=== PATIENT | male | born 1955 | race Hispanic/Latino ===

== ENCOUNTER 2021-09-24 08:18 | Day surgery (SDC) | payer MEDICARE ==
[2021-09-22 13:46] VITALS: BP 145/68
[2021-09-22 14:01] LABS: BASOPHILS % (AUTO) 0.4 % (0.0-5.0); EOSINOPHILS % (AUTO) 2.4 % (0.0-8.0); HEMATOCRIT 40.7 % (42-54); LYMPHOCYTES % (AUTO) 26.7 % (21.0-51.0); MEAN CORPUSCULAR HEMOGLOBIN 32.1 pg (27.0-33.0); MEAN CORPUSCULAR HGB CONC 33.9 g/dL (32.0-36.0); MEAN CORPUSCULAR VOLUME 94.7 fL (79-99); MONOCYTES % (AUTO) 6.3 % (3.0-13.0); NEUTROPHILS % (AUTO) 63.7 % (40.0-77.0); PLATELET COUNT (AUTO) 260 K/uL (130-400); RED CELL DISTRIBUTION WIDTH 12.7 % (11.0-15.5); WHITE BLOOD COUNT (AUTO) 7.5 K/uL (4.8-10.8)
[2021-09-22 14:10] LABS: CREATININE 0.9 mg/dL (0.5-1.5); POTASSIUM 4.4 mmol/L (3.5-5.1)
[2021-09-24] VITALS (15 sets, daily range): BP systolic 129–149; BP diastolic 60–78
[~2021-09-24] VITALS: Ht 175.3 cm; Wt 68.8 kg
[~2021-09-24 08:18] MED LIST: 0.9% NACL 500ML IV.SOLN 500 ML IV SCH; CEFAZOLIN SODIUM 1 GM VIAL IVP SCH
[2021-09-24] MEDS ORDERED: CEFAZOLIN SODIUM 1 GM VIAL ONE (09:43)
[2021-09-24] MEDS ORDERED: LACTATED RINGERS 1000ML 1,000 ML IV ONE (09:43)
[2021-09-24] MEDS ORDERED: ACET-2743 PO (10:14)
[2021-09-24] MEDS ORDERED: BUPIVACAINE/PF 0.5% 30ML VIAL ONE (10:44)
[2021-09-24] MEDS ORDERED: SUCCINYLCHOLINE 200MG/10ML SYR ONE (11:15)
[2021-09-24] MEDS ORDERED: LIDOCAINE PF 100MG/5ML (2%) SYRINGE 5ML ONE (11:15)
[2021-09-24] MEDS ORDERED: ROCURONIUM 10MG/1ML SYR 10 MG/ML ML ONE (11:16)
[2021-09-24] MEDS ORDERED: MIDAZOLAM HCL 1 MG/ML 2ML VIAL ONE (11:16)
[2021-09-24] MEDS ORDERED: FENTANYL CITRATE PF 50 MCG/1 ML 2ML VIAL ONE (11:16)
[2021-09-24] MEDS ORDERED: PROPOFOL 10 MG/ML 20ML VIAL IV ONE (11:16)
[2021-09-24] MEDS ORDERED: EPHEDRINE SULFATE 50 MG/ML AMPULE ONE (12:04)
[2021-09-24] MEDS ORDERED: GLYCOPYRROLATE 1 MG/5 ML SYRINGE ONE (12:57)
[2021-09-24] MEDS ORDERED: NEOSTIGMINE 5MG/5ML SYR IV ONE (12:57)
[2021-09-24] MEDS ORDERED: MEPERIDINE-PF 25 MG/ML SYG ONE ×2 (13:23→13:36)
[2021-09-24] MEDS ORDERED: KETOROLAC 30MG VIAL (30MG/ML) ONE (13:47)
== END 2021-09-24 15:00 | disposition home or self-care (01) ==
LOC: DAH 08:18
PROVIDERS: ATTEND Surgery
DX: K40.90 Unilateral inguinal hernia, without obstruction or gangrene, not specified as recurrent (principal); Z20.822 Contact with and (suspected) exposure to COVID-19; D17.6 Benign lipomatous neoplasm of spermatic cord; E11.9 Type 2 diabetes mellitus without complications; Z98.890 Other specified postprocedural states; Z79.899 Other long term (current) drug therapy
CPT/HCPCS: 36415 ×2; 49650; 80048; 80053; 81001; 85025 ×2; 87088; 87635; 93005; 99284; A4215 ×2; A4221; A4222; A4223; A4344; A4649; A4663; A6260; C1781; C9803; G0168; J0330; J0690; J1885; J1956; J2001; J2175 ×2; J2250; J2704; J2710; J3010; J3490 ×3; J7120; 96365

== ENCOUNTER 2021-09-24 20:41 | Emergency (ER) | payer MEDICARE ==
[~2021-09-24] VITALS: Ht 175.3 cm; Wt 68.0 kg
[~2021-09-24 20:41] MED LIST changes: -0.9% NACL 500ML IV.SOLN 500 ML IV SCH; +ACET-2743 PO; -CEFAZOLIN SODIUM 1 GM VIAL IVP SCH
[2021-09-24 21:40] LABS: BASOPHILS % (AUTO) 0.2 % (0.0-5.0); EOSINOPHILS % (AUTO) 0.2 % (0.0-8.0); HEMATOCRIT 40.6 % (42-54); LYMPHOCYTES % (AUTO) 13.7 % (21.0-51.0); MEAN CORPUSCULAR HEMOGLOBIN 32.2 pg (27.0-33.0); MEAN CORPUSCULAR VOLUME 94.9 fL (79-99); MONOCYTES % (AUTO) 7.4 % (3.0-13.0); NEUTROPHILS % (AUTO) 78.2 % (40.0-77.0); PLATELET COUNT (AUTO) 241 K/uL (130-400); RED BLOOD CELL COUNT(AUTO) 4.28 MIL/uL (4.50-6.20); RED CELL DISTRIBUTION WIDTH 12.5 % (11.0-15.5); WHITE BLOOD COUNT (AUTO) 10.4 K/uL (4.8-10.8)
[2021-09-24] MEDS: PHENAZOPYRIDINE HCL 200 MG TABLET PO ONE (21:48)
[2021-09-24] MEDS: LEVOFLOXACIN 500 MG/D5W 100 ML 100 ML IV SCH (22:09)
[2021-09-24] MEDS: LIDOCAINE HCL 2% VISCOUS 15 ML UDCUP ONE (22:10)
[2021-09-24] MEDS: LIDOCAINE HCL 2% JELLY 5 ML ONE (22:10)
[2021-09-24 22:21] LABS: APPEARANCE,URINE Clear (CLEAR); BILIRUBIN,URINE Negative (NEGATIVE); COLOR,URINE Yellow (YELLOW); GLUCOSE, URINE (UA) Negative (NEGATIVE); KETONES,URINE 15 mg/dL (NEGATIVE); LEUKOCYTE ESTERASE ,URINE Small (NEGATIVE); NITRATE,URINE Negative (NEGATIVE); OCCULT BLOOD,URINE Nonhemolyzed Trace (NEGATIVE); PROTEIN,URINE Negative (NEGATIVE); UROBILINOGEN,URINE 0.2 mg/dL (0.2-1.0)
[2021-09-24 22:27] LABS: CREATININE 0.9 mg/dL (0.5-1.5); POTASSIUM 3.9 mmol/L (3.5-5.1)
[2021-09-24 22:30] LABS: BACTERIA,URINE Few /HPF (None Seen); RBC,URINE 0-1 /HPF (0-1); SQUAMOUS EPITHELIAL CELL,UR None Seen /HPF (0-2)
[2021-09-24 22:31] LABS: ALBUMIN 3.9 g/dL (3.5-5.0); BILIRUBIN,TOTAL 0.6 mg/dL (0.2-1.0); TOTAL PROTEIN, SERUM 7.8 g/dL (6.0-8.3)
[2021-09-24 23:47] VITALS: BP 132/65
== END 2021-09-24 23:51 | disposition home or self-care (01) ==
LOC: EDH 20:41
DX: G89.18 Other acute postprocedural pain (principal); R33.9 Retention of urine, unspecified; R31.9 Hematuria, unspecified; Z79.899 Other long term (current) drug therapy
CPT/HCPCS: 36415; 80053; 81001; 85025; 87088; 96365; 99284; J1956

== ENCOUNTER → 2021-11-08 | Outpatient (CLI) | payer MEDICARE | END | disposition home or self-care (01) | LOC: RAH 13:26 | PROVIDERS: ATTEND Surgery | DX: M79.89 Other specified soft tissue disorders (principal); Z98.890 Other specified postprocedural states | CPT/HCPCS: 72192 ==

== ENCOUNTER → 2021-12-15 | Outpatient (CLI) | payer MEDICARE | END | disposition home or self-care (01) | LOC: RAH 13:02 | PROVIDERS: ATTEND Surgery | DX: K40.20 Bilateral inguinal hernia, without obstruction or gangrene, not specified as recurrent (principal); N50.819 Testicular pain, unspecified; Z98.890 Other specified postprocedural states | CPT/HCPCS: 76870 ==